=== PATIENT | female | born 1965 | race Caucasian/White ===

== ENCOUNTER 2022-05-01 09:22 | Day surgery (SDC) | payer OTHER | END 2022-05-01 12:35 | disposition home or self-care (01) | LOC: FASU-ENDO 09:22 | PROVIDERS: ATTEND Internal Medicine Gastroenterology | PROC: 0DBN8ZX Excision of Sigmoid Colon, Via Natural or Artificial Opening Endoscopic, Diagnostic (ICD-10-PCS; principal; 2022-05-01 11:40) | DX: Z12.11 Encounter for screening for malignant neoplasm of colon (principal); D12.7 Benign neoplasm of rectosigmoid junction; K64.3 Fourth degree hemorrhoids | CPT/HCPCS: 84703; 88305-TC ==